=== PATIENT | male | born 1985 | race Caucasian/White ===

== ENCOUNTER 2018-07-14 17:40 | Emergency (ER) | payer OTHER, SELFPAY ==
[2018-07-14] MEDS ORDERED: predniSONE 20 MG TAB ONE (18:04)
[2018-07-14] MEDS ORDERED: ALBUTEROL 2.5 MG/3 ML NEB SOL ONE (18:04)
--- NOTE | 2018-07-14 19:08 | ER ---
Nurse's Notes [facility] Name: Adam Kothari Age: 32 yrs Sex: Male : 1985 Arrival Date: 07/14/2018 Time: 17:42 Bed 28 Private MD: None, None Diagnosis: Unspecified asthma with (acute) exacerbation Presentation: 07/14 17:46 Presenting complaint: Patient states: hx of asthma, decided to smoke a pack of iw cigarettes over the weekend, normally doesn't smoke, has had SOB, chest tightness and wheezing for past couple of days, has been using inhaler and neb treatment at home. Transition of care: patient was not received from another setting of care. Onset of symptoms was July 12, 2018. Risk Assessment: Do you want to hurt yourself or someone else? Patient reports no desire to harm self or others. Initial Sepsis Screen: Does the patient meet any 2 criteria? No. Patient's initial sepsis screen is negative. Does the patient have a suspected source of infection? No. Patient's initial sepsis screen is negative. Care prior to arrival: None. 17:46 Method Of Arrival: Ambulatory iw 17:46 Acuity: SILVER 4 iw Historical: - Allergies: 17:54 NKA; iw - Home Meds: 17:54 Albuterol Nebulizer [Active]; iw - PMHx: 17:54 Asthma; iw - PSHx: 17:54 left wrist; iw - Immunization history:: Adult Immunizations not up to date. - Social history:: Smoking status: Patient/guardian denies using tobacco. - Ebola Screening: : Patient negative for fever greater than or equal to 101.5 degrees Fahrenheit, and additional compatible Ebola Virus Disease symptoms Patient denies exposure to infectious person Patient denies travel to an Ebola-affected area in the 21 days before illness onset No symptoms or risks identified at this time. Screenin:00 Abuse screen: Denies threats or abuse. Denies injuries from another. Nutritional kr2 screening: No deficits noted. Tuberculosis screening: No symptoms or risk factors identified. Fall Risk None identified. Assessment: 18:00 General: Appears in no apparent distress. uncomfortable, well groomed, well developed, kr2 Behavior is calm, cooperative. Pain: Denies pain. Neuro: Level of Consciousness is awake, alert, obeys commands, Oriented to person, place, time, situation, Appropriate for age. Cardiovascular: Patient's skin is warm and dry. Rhythm is regular. Respiratory: Reports cough that is non-productive, Airway is patent Respiratory effort is even, unlabored, Respiratory pattern is regular, symmetrical, Breath sounds are clear bilaterally. GI: Abdomen is flat, non-distended. EENT: Oral mucosa is moist. Derm: Skin is intact, is healthy with good turgor, Skin is pink, warm \T\ dry. 19:00 Reassessment: Patient appears in no apparent distress at this time. Patient and/or kr2 family updated on plan of care and expected duration. Pain level reassessed. Patient is alert, oriented x 3, equal unlabored respirations, skin warm/dry/pink. Patient states feeling better. Patient states symptoms have improved. Vital Signs: 17:43 BP 150 / 104 RA Sitting (auto/reg); Pulse 93; Resp 19; Pulse Ox 97% ; Weight 86.18 kg; iw Height 5 ft. 8 in. (172.72 cm); Pain 0/10; 18:30 BP 146 / 90; Pulse 87; Resp 19; Pulse Ox 97% on R/A; kr2 19:21 BP 146 / 90; Pulse 79; Resp 18; Temp 98.1; Pulse Ox 97% on R/A; kr2 17:43 Body Mass Index 28.89 (86.18 kg, 172.72 cm) iw ED Course: 17:42 Patient arrived in ED. mr 17:42 None, None is Private Physician. mr 17:46 Rosio Wade, RN is Primary Nurse. kr2 17:47 Patient has correct armband on for positive identification. Bed in low position. Call jp3 light in reach. Side rails up X 1. Pulse ox on. NIBP on. 17:48 Domingo Guerin NP is PHCP. pm1 17:48 Sean Dueñas MD is Attending Physician. pm1 17:51 Triage completed. iw 18:00 Patient notified of wait time. kr2 19:25 No provider procedures requiring assistance completed. Patient did not have IV access kr2 during this emergency room visit. Administered Medications: 17:59 Drug: Albuterol 2.5 mg Route: Inhalation; kr2 18:25 Follow up: Response: No adverse reaction; Marked relief of symptoms kr2 17:59 Drug: predniSONE 60 mg Route: PO; kr2 19:25 Follow up: Response: No adverse reaction kr2 Outcome: 19:08 Discharge ordered by . pm1 19:25 Discharged to home ambulatory. kr2 19:25 Condition: good 19:25 Discharge instructions given to patient, Instructed on discharge instructions, follow up and referral plans. medication usage, Demonstrated understanding of instructions, follow-up care, medications. 19:27 Patient left the ED. kr2 Signatures: Addie Garcia mr Nona Birmingham RN RN iw Domingo Guerin NP SENIOR LABEL SPECIALIST pm1 Rosio Wade RN RN kr2 Charlie Flores jp3 Corrections: (The following items were deleted from the chart) 17:52 17:43 BP 150 / 104 Sitting Auto R Arm Regular; Pulse 4bpm; Resp 19bpm; Pulse Ox 97%; jp3iw 19:26 19:21 BP 146 / 90; Pulse 79bpm; Resp 18bpm; Pulse Ox 97% RA; kr2 kr2
--- NOTE | 2018-07-14 19:09 | EDPHYS ---
Physician Documentation [facility] Name: Adam Kothari Age: 32 yrs Sex: Male : 1985 Arrival Date: 07/14/2018 Time: 17:42 Bed 28 Private MD: None, None ED Physician Sean Dueñas HPI: 07/14 18:00 This 32 yrs old Male presents to ER via Ambulatory with complaints of Asthma pm1 Exacerbation. 18:00 The patient presents to the emergency department with wheezing, Current therapy: pm1 albuterol inhaler, albuterol nebs, that began smoking cigarettes, the patient was reported to have non-productive cough, Pre-hospital care: med neb, albuterol. Onset: The symptoms/episode began/occurred yesterday. Modifying factors: The symptoms are alleviated by nothing, the symptoms are aggravated by nothing. Associated signs and symptoms: Pertinent negatives: chest pain, fever, headache, nausea, palpitations, vomiting. Severity of symptoms: in the emergency department the symptoms have improved Pain is currently a 0 / 10. The patient has experienced similar episodes in the past, a few times. The patient has not recently seen a physician. Patient does not smoke but smoked a pack this weekend while partying and believes that it might have caused his asthma to flare up. does not typically have even one asthma attack per month. Historical: - Allergies: 17:54 NKA; iw - Home Meds: 17:54 Albuterol Nebulizer [Active]; iw - PMHx: 17:54 Asthma; iw - PSHx: 17:54 left wrist; iw - Immunization history:: Adult Immunizations not up to date. - Social history:: Smoking status: Patient/guardian denies using tobacco. - Ebola Screening: : Patient negative for fever greater than or equal to 101.5 degrees Fahrenheit, and additional compatible Ebola Virus Disease symptoms Patient denies exposure to infectious person Patient denies travel to an Ebola-affected area in the 21 days before illness onset No symptoms or risks identified at this time. ROS: 18:00 Constitutional: Negative for fever, chills, and weight loss, Eyes: Negative for injury, pm1 pain, redness, and discharge, ENT: Negative for injury, pain, and discharge, Neck: Negative for injury, pain, and swelling, Cardiovascular: Negative for chest pain, palpitations, and edema, Abdomen/GI: Negative for abdominal pain, nausea, vomiting, diarrhea, and constipation, Back: Negative for injury and pain, MS/Extremity: Negative for injury and deformity, Skin: Negative for injury, rash, and discoloration, Neuro: Negative for headache, weakness, numbness, tingling, and seizure. 18:00 Respiratory: Positive for cough, with no reported sputum, shortness of breath, wheezing, Negative for sputum production. Exam: 18:00 Constitutional: This is a well developed, well nourished patient who is awake, alert, pm1 and in no acute distress. Head/Face: Normocephalic, atraumatic. Eyes: Pupils equal round and reactive to light, extra-ocular motions intact. Lids and lashes normal. Conjunctiva and sclera are non-icteric and not injected. Cornea within normal limits. Periorbital areas with no swelling, redness, or edema. ENT: Nares patent. No nasal discharge, no septal abnormalities noted. Tympanic membranes are normal and external auditory canals are clear. Oropharynx with no redness, swelling, or masses, exudates, or evidence of obstruction, uvula midline. Mucous membranes moist. Neck: Trachea midline, no thyromegaly or masses palpated, and no cervical lymphadenopathy. Supple, full range of motion without nuchal rigidity, or vertebral point tenderness. No Meningismus. Chest/axilla: Normal chest wall appearance and motion. Nontender with no deformity. No lesions are appreciated. Cardiovascular: Regular rate and rhythm with a normal S1 and S2. No gallops, murmurs, or rubs. Normal PMI, no JVD. No pulse deficits. 18:00 Abdomen/GI: Soft, non-tender, with normal bowel sounds. No distension or tympany. No guarding or rebound. No evidence of tenderness throughout. Back: No spinal tenderness. No costovertebral tenderness. Full range of motion. Skin: Warm, dry with normal turgor. Normal color with no rashes, no lesions, and no evidence of cellulitis. MS/ Extremity: Pulses equal, no cyanosis. Neurovascular intact. Full, normal range of motion. 18:00 Respiratory: the patient does not display signs of respiratory distress, Respirations: normal, Breath sounds: wheezing: expiratory that is mild, is heard diffusely. 18:00 Neuro: Orientation: is normal, Motor: is normal, moves all fours, Gait: is steady, at a normal pace, without difficulty. Vital Signs: 17:43 BP 150 / 104 RA Sitting (auto/reg); Pulse 93; Resp 19; Pulse Ox 97% ; Weight 86.18 kg; iw Height 5 ft. 8 in. (172.72 cm); Pain 0/10; 18:30 BP 146 / 90; Pulse 87; Resp 19; Pulse Ox 97% on R/A; kr2 19:21 BP 146 / 90; Pulse 79; Resp 18; Temp 98.1; Pulse Ox 97% on R/A; kr2 17:43 Body Mass Index 28.89 (86.18 kg, 172.72 cm) iw MDM: 17:48 Patient medically screened. pm1 19:07 ED course: Offered additional breathing treatment to the patient but refused since he pm1 feels better and has the same medication at home. does need refill on inhaler, but has enough nebulizer at home. . 19:07 Data reviewed: vital signs. Data interpreted: Pulse oximetry: on room air is 97 %. pm1 Interpretation: normal. Counseling: I had a detailed discussion with the patient and/or guardian regarding: the historical points, exam findings, and any diagnostic results supporting the discharge/admit diagnosis, the need for outpatient follow up, to return to the emergency department if symptoms worsen or persist or if there are any questions or concerns that arise at home. Administered Medications: 17:59 Drug: Albuterol 2.5 mg Route: Inhalation; kr2 18:25 Follow up: Response: No adverse reaction; Marked relief of symptoms kr2 17:59 Drug: predniSONE 60 mg Route: PO; kr2 19:25 Follow up: Response: No adverse reaction kr2 Disposition: 07/15 07:46 Co-signature as Attending Physician, Sean Dueñas MD I agree with the assessment and wa plan of care. Disposition: 07/14/18 19:08 Discharged to Home. Impression: Unspecified asthma with (acute) exacerbation. - Condition is Stable. - Discharge Instructions: Asthma, Adult, How to Use an Inhaler. - Prescriptions for Medrol (Rosendo) 4 mg Oral Tablets, Dose Pack - take 1 tablet by ORAL route as directed - follow package instructions; 1 packet. Albuterol Sulfate 90 mcg/actuation - inhale 1-2 puff by INHALATION route every 4-6 hours; 1 Inhaler. - Medication Reconciliation Form, Thank You Letter, Antibiotic Education form. - Follow up: Emergency Department; When: As needed; Reason: Worsening of condition. Follow up: Private Physician; When: 2 - 3 days; Reason: Recheck today's complaints, Continuance of care, Re-evaluation by your physician. - Problem is new. - Symptoms have improved. Signatures: Nona Birmingham RN Domingo Meredith NP [employer]PPLIES PACKER pm1 Sean Dueñas MD MD wa Reaves, Karey, RN RN kr2 Corrections: (The following items were deleted from the chart) 07/14 19:27 19:08 07/14/2018 19:08 Discharged to Home. Impression: Unspecified asthma with (acute) kr2 exacerbation. Condition is Stable. Forms are Medication Reconciliation Form, Thank You Letter, Antibiotic Education, Prescription Opioid Use. Follow up: Emergency Department; When: As needed; Reason: Worsening of condition. Follow up: Private Physician; When: 2 - 3 days; Reason: Recheck today's complaints, Continuance of care, Re-evaluation by your physician. Problem is new. Symptoms have improved. pm1
== END 2018-07-14 19:27 | disposition home or self-care (01) ==
LOC: ER 17:40
DX: J45.901 Unspecified asthma with (acute) exacerbation (principal)
CPT/HCPCS: 99284; J7512

== ENCOUNTER 2020-12-11 20:06 | Emergency (ER) | payer SELFPAY ==
--- OUTSIDE RECORDS SUMMARY | 2020-12-11 20:11 | XMS REPORT | Continuity of Care Document ---
:1985 Author Organization [facility] t Address [address] [place] [address] Care Team Providers Name Role Phone Asked, Pcp Primary Care Physician Unavailable Payers Payer Name Policy Type Policy Number Effective Date Expiration Date S ource Problems This patient has no known problems. Allergies, Adverse Reactions, Alerts This patient has no known allergies or adverse reactions. Family History Family Member Diagnosis Comments Start Date Stop Date Source Natural father No Known Problems Prasad nathanieln Religious Natural mother [facility] Social History Social Habit Start Date Stop Date Quantity Comments Source Tobacco use and 2018-06-16 2018-06-16 Current user [facility] exposure 00:00:00 00:00:00 Alcohol intake 2018-06-16 2018-06-16 Current drinker [place] [facility] 00:00:00 00:00:00 of alcohol (finding) Sex Ass[birth year] [facility] ethodist 00:00:00 00:00:00 Smoking Status Start Date Stop Date Source Light tobacco smoker 2018-06-16 00:00:00 [place] Religious Medications Ordered Filled Start Stop Current Ordering Indication Dosage Frequency Signature Comments Components Source Medication Medication Date Date Medication? Clinician (SIG) Name Name peak flow 2017-09 Yes Severe Check peak [place] meter 0-02 persistent flow in 5 Met hodi device 00:00: asthma, days for st 00 unspecified best lung whether function complicated reading and record, then check once a day for 2 wks, then once a week or if sob. ipratropium 2017-09 Yes Acute 2{spray Q12H 2 sprays [place] (ATROVENT) 0-01 frontal } into each M ethodi 0.03 % 00:00: sinusitis, nostril st nasal spray 00 recurrence every 12 not (twelve) specified hours. Procedures This patient has no known procedures. Plan of Care Planned Activity Planned Date Details Comments Source Future Scheduled 2020-04-15 INFLUENZA VACCINE [place] [facility] Test 00:00:00 [code = INFLUENZA VACCINE] Future Scheduled 2005-12-16 Hepatitis C [place] Met hodist Test 00:00:00 screening (procedure) [code = 451271952] Future Scheduled 2003 COVID-19 VACCINE (1) Prasad christina Religious Test 00:00:00 [code = COVID-19 VACCINE (1)] Results Test Description Test Time Test Comments Results Result [facility] Comments - XR SACRUM/COCCYX 2019-06-23 Patient Name: 2+V 09:11:00 MELODIE NAIR Unit No: [id number] EXAMS: CPT CODE: [id number] XR SACRUM/COCCYX 2+V 45111 LOCATION: T18 EXAM: - XR SACRUM/COCCYX 2+V INDICATION: Lower back and pelvic pain COMPARISON: None. TECHNIQUE: AP, AP oblique and lateral radiographs of the sacrum. FINDINGS: No acute fracture identified. Coccygeal segments are normal in alignment. SI joints are normal. IMPRESSION: No acute bony abnormality. at 0911 Reported and signed by: Lester Guerrero MD CC: Bob MAGAÑA Technologist: RT Mary (R) Transcrpt Date/Tm/Trnsp: 06/23/2019 (09) [email or web address] Orig Print D/T: S: 06/23/2019 (14) [facility] NAME: MELODIE NAIR [address] PHYS: [place] [address] : 1985 AGE: 33 SEX: M LOC: .[facility] PHONE #: [phone] EXAM DATE: 06/23/2019 STATUS: REG ER FAX #: [phone] RADIOLOGY NO: PAGE 1 Signed Report
[2020-12-11] MEDS ORDERED: METHYLPREDNISOLONE 125 MG INJ ONE (21:07)
[2020-12-11] MEDS ORDERED: DIPHENHYDRAMINE 50 MG/ML VIAL ONE (21:07)
[2020-12-11] MEDS ORDERED: NA CHLORIDE 0.9% 1,000 ML ONE (21:07)
[2020-12-11] MEDS ORDERED: FAMOTIDINE 20 MG/2 ML VIAL IV ONE (21:08)
--- NOTE | 2020-12-11 22:40 | ER ---
Nurse's Notes [facility] Name: Adam Kothari Age: 34 yrs Sex: Male : 1985 Arrival Date: 12/11/2020 Time: 20:10 Bed 17 Private MD: Diagnosis: Asthma Presentation: 12/11 20:23 Chief complaint: Patient states: Difficulty breathing and wheezing, off and on 3 days. ca1 today has been worse and all day. Denies cough. Denies fever. HX of asthma. Did breathing treatment and inhalers at home, no relief. Coronavirus screen: Client denies travel out of the [place] in the last 14 days. At this time, the client does not indicate any symptoms associated with coronavirus-19. Ebola Screen: Patient negative for fever greater than or equal to 101.5 degrees Fahrenheit, and additional compatible Ebola Virus Disease symptoms Patient denies exposure to infectious person. Patient denies travel to an Ebola-affected area in the 21 days before illness onset. No symptoms or risks identified at this time. Initial Sepsis Screen: Does the patient meet any 2 criteria? No. Patient's initial sepsis screen is negative. Does the patient have a suspected source of infection? No. Patient's initial sepsis screen is negative. Risk Assessment: Do you want to hurt yourself or someone else? Patient reports no desire to harm self or others. Onset of symptoms was December 11, 2020. 20:23 Method Of Arrival: Ambulatory ca1 20:23 Acuity: SILVER 2 ca1 Historical: - Allergies: 20:26 NKA; ca1 - Home Meds: 20:26 Albuterol Inhl [Active]; ca1 - PMHx: 20:26 Asthma; ca1 - PSHx: 20:26 left wrist; ca1 - Immunization history:: Flu vaccine is not up to date. - Social history:: Smoking status: Reported history of juuling and/or vaping. Screenin:45 Abuse screen: Denies threats or abuse. Nutritional screening: No deficits noted. em Tuberculosis screening: No symptoms or risk factors identified. Fall Risk None identified. Assessment: 20:50 General: Appears in no apparent distress. comfortable, Behavior is calm, cooperative, em appropriate for age, Denies fever. Pain: Denies pain. Neuro: Level of Consciousness is awake, alert, obeys commands, Oriented to person, place, time, situation. Cardiovascular: Capillary refill < 3 seconds Patient's skin is warm and dry. Rhythm is regular. Respiratory: Reports shortness of breath at rest Airway is patent Respiratory effort is even, unlabored, Respiratory pattern is regular, symmetrical, Breath sounds are diminished bilaterally. Denies cough. Derm: Skin is intact, is healthy with good turgor, Skin is pink, warm \T\ dry. Musculoskeletal: Capillary refill < 3 seconds, Range of motion: intact in all extremities. 21:30 Reassessment: pt reports symptoms are unchanged, provider notified. em 22:10 Reassessment: Patient appears in no apparent distress at this time. Patient and/or em family updated on plan of care and expected duration. Pain level reassessed. Patient is alert, oriented x 3, equal unlabored respirations, skin warm/dry/pink. Patient states feeling better. Vital Signs: 20:23 BP 150 / 106; Pulse 104; Resp 20; Temp 98.8(TE); Pulse Ox 96% on R/A; Weight 104.33 kg ca1 (R); Height 5 ft. 8 in. (172.72 cm) (R); Pain 0/10; 22:49 BP 148 / 92; Pulse 100; Resp 18; Pulse Ox 95% on R/A; em 20:23 Body Mass Index 34.97 (104.33 kg, 172.72 cm) ca1 ED Course: 20:10 Patient arrived in ED. ag3 20:26 Triage completed. ca1 20:26 Arm band placed on right wrist. ca1 20:37 Jose Patel RN is Primary Nurse. em 20:37 [facility] Bethea [facility]C [facility] kb 20:37 Carlos Daniel MD is Attending Physician. kb 20:45 Patient has correct armband on for positive identification. Bed in low position. Call em light in reach. Side rails up X2. Pulse ox on. NIBP on. 20:55 Inserted saline lock: 20 gauge in right antecubital area, using aseptic technique. em 22:50 No provider procedures requiring assistance completed. IV discontinued, intact, em bleeding controlled, No redness/swelling at site. Pressure dressing applied. Administered Medications: 20:55 Drug: NS 0.9% 1000 ml Route: IV; Rate: 1000 ml; Site: right antecubital; em 22:51 Follow up: IV Status: Completed infusion; IV Intake: 1000ml em 20:55 Drug: Pepcid (famotidine) 20 mg Route: IVP; Site: right antecubital; em 22:07 Follow up: Response: No adverse reaction em 20:57 Drug: SOLU-Medrol 125 mg Route: IVP; Site: right antecubital; em 22:07 Follow up: Response: No adverse reaction em 20:59 Drug: Benadryl (diphenhydrAMINE) 12.5 mg Route: IVP; Site: right antecubital; em 22:07 Follow up: Response: No adverse reaction em Intake: 22:51 IV: 1000ml; Total: 1000ml. em Outcome: 22:39 Discharge ordered by MD. kb 22:50 Discharged to home ambulatory. em 22:50 Condition: good 22:50 Discharge instructions given to patient, Instructed on discharge instructions, follow up and referral plans. medication usage, Demonstrated understanding of instructions, follow-up care, medications, Prescriptions given X 4. 22:52 Patient left the ED. em Signatures: Radhika Bethea, MACHINE SHOP APPRENTICE-C MACHINE SHOP APPRENTICE-CkJose Maxwell, RN RN em Gema Dorado ag3 Aria Trujillo RN RN ca1 Corrections: (The following items were deleted from the chart) 20: 20:23 Acuity: SILVER 3 ca1 ca1
--- NOTE | 2020-12-11 22:40 | EDPHYS ---
Physician Documentation [facility] Name: Adam Kothari Age: 34 yrs Sex: Male : 1985 Arrival Date: 12/11/2020 Time: 20:10 Bed 17 Private MD: ED Physician Carlos Daniel HPI: 12/12 00:33 This 34 yrs old Male presents to ER via Ambulatory with complaints of kb Breathing Difficulty. 00:33 The patient has shortness of breath at rest, and the patient has a history of asthma. kb Onset: The symptoms/episode began/occurred 4 day(s) ago. Duration: The symptoms are continuous. The patient's shortness of breath is aggravated by nothing, is alleviated by nothing. Associated signs and symptoms: Pertinent positives: This patient does not have any pertinent positive signs or symptoms associated with shortness of breath. Severity of symptoms: At their worst the symptoms were moderate in the emergency department the symptoms are unchanged. The patient has not experienced similar symptoms in the past. The patient has not recently seen a physician. Pt states he has had shortness of breath and wheezing for 4 days. States he also has a rash. This doesn't feel like previous asthma attacks, states he feels like an allergic reaction. . Historical: - Allergies: 12/11 20:26 NKA; ca1 - Home Meds: 20:26 Albuterol Inhl [Active]; ca1 - PMHx: 20:26 Asthma; ca1 - PSHx: 20:26 left wrist; ca1 - Immunization history:: Flu vaccine is not up to date. - Social history:: Smoking status: Reported history of juuling and/or vaping. ROS: 12/12 00:32 Constitutional: Negative for fever, chills, and weight loss, Cardiovascular: Negative kb for chest pain, palpitations, and edema, Abdomen/GI: Negative for abdominal pain, nausea, vomiting, diarrhea, and constipation, MS/Extremity: Negative for injury and deformity, Neuro: Negative for headache, weakness, numbness, tingling, and seizure. Respiratory: Positive for shortness of breath. Skin: Positive for rash, of the right axilla. Exam: 00:32 Constitutional: This is a well developed, well nourished patient who is awake, alert, kb and in no acute distress. Head/Face: Normocephalic, atraumatic. Cardiovascular: Regular rate and rhythm with a normal S1 and S2. No gallops, murmurs, or rubs. No pulse deficits. Respiratory: Respirations even and unlabored. No increased work of breathing, no retractions or nasal flaring. Abdomen/GI: Soft, non-tender. No distention MS/ Extremity: Pulses equal, no cyanosis. Neurovascular intact. Full, normal range of motion. Neuro: Awake and alert, GCS 15, oriented to person, place, time, and situation. Moves all extremities. Normal gait. 00:32 Skin: contact dermatitis, on the right axilla. Vital Signs: 12/11 20:23 BP 150 / 106; Pulse 104; Resp 20; Temp 98.8(TE); Pulse Ox 96% on R/A; Weight 104.33 kg ca1 (R); Height 5 ft. 8 in. (172.72 cm) (R); Pain 0/10; 22:49 BP 148 / 92; Pulse 100; Resp 18; Pulse Ox 95% on R/A; em 20:23 Body Mass Index 34.97 (104.33 kg, 172.72 cm) ca1 MDM: 20:38 Patient medically screened. kb 12/12 00:31 Data reviewed: vital signs, nurses notes. Data interpreted: Pulse oximetry: on room air kb is 95 %. Interpretation: normal. Counseling: I had a detailed discussion with the patient and/or guardian regarding: the historical points, exam findings, and any diagnostic results supporting the discharge/admit diagnosis, the need for outpatient follow up, a family practitioner, to return to the emergency department if symptoms worsen or persist or if there are any questions or concerns that arise at home. 00:31 ED course: Feeling much better after treatment and ready to go home. kb 12/11 20:47 Order name: IV Start; Complete Time: 21:02 kb Administered Medications: 12/11 20:55 Drug: NS 0.9% 1000 ml Route: IV; Rate: 1000 ml; Site: right antecubital; em 22:51 Follow up: IV Status: Completed infusion; IV Intake: 1000ml em 20:55 Drug: Pepcid (famotidine) 20 mg Route: IVP; Site: right antecubital; em 22:07 Follow up: Response: No adverse reaction em 20:57 Drug: SOLU-Medrol 125 mg Route: IVP; Site: right antecubital; em 22:07 Follow up: Response: No adverse reaction em 20:59 Drug: Benadryl (diphenhydrAMINE) 12.5 mg Route: IVP; Site: right antecubital; em 22:07 Follow up: Response: No adverse reaction em Disposition: 12/12 08:12 Co-signature as Attending Physician, Carlos Daniel MD I agree with the assessment and tw4 plan of care. Disposition: 12/11/20 22:39 Discharged to Home. Impression: Asthma. - Condition is Stable. - Discharge Instructions: Asthma, Adult, [id number]. - Prescriptions for Pepcid 20 mg Oral Tablet - take 1 tablet by ORAL route every 12 hours for 5 days; 10 tablet. Prednisone 20 mg Oral Tablet - take 1 tablet by ORAL route once daily for 5 days; 5 tablet. Albuterol Sulfate 2.5 mg /3 mL (0.083 %) Inhalation Solution for Nebulization - inhale 1 unit by NEBULIZATION route every 8 hours As needed; 1 box. Albuterol Sulfate 90 mcg/actuation - inhale 1-2 puff by INHALATION route every 4-6 hours; 1 Inhaler. - Medication Reconciliation Form, Thank You Letter, Antibiotic Education, Prescription Opioid Use form. - Follow up: Emergency Department; When: As needed; Reason: Worsening of condition. Follow up: Private Physician; When: 2 - 3 days; Reason: Recheck today's complaints, Continuance of care, Re-evaluation by your physician. Signatures: Radhika Bethea, GERALDINE-Lakshmi CHANDLER-Jose Rojo, KRISTEL RN em Carlos Daniel MD MD tw4 Aria Trujillo RN RN ca1 Corrections: (The following items were deleted from the chart) 12/11 22:52 22:39 12/11/2020 22:39 Discharged to Home. Impression: Asthma. Condition is Stable. em Forms are Medication Reconciliation Form, Thank You Letter, Antibiotic Education, Prescription Opioid Use. Follow up: Emergency Department; When: As needed; Reason: Worsening of condition. Follow up: Private Physician; When: 2 - 3 days; Reason: Recheck today's complaints, Continuance of care, Re-evaluation by your physician. kb
[2020-12-11 23:45] VITALS: TEMP 98.8
[2020-12-11 23:46] VITALS: BP 148/92; O2SAT 95
== END 2020-12-11 22:52 | disposition home or self-care (01) ==
LOC: ER 20:06
DX: J45.909 Unspecified asthma, uncomplicated (principal); R21 Rash and other nonspecific skin eruption
CPT/HCPCS: 96361; 96374; 96375; 99284; J1200; J2930; J7030

== ENCOUNTER 2022-02-09 06:26 | Emergency (ER) | payer BC, SELFPAY ==
--- OUTSIDE RECORDS SUMMARY | 2022-02-09 06:29 | XMS REPORT | Continuity of Care Document ---
:1985 Author Organization [facility] t Address [address] [place] [address] Care Team Providers Name Role Phone Jenna Attending Clinician Unavailable Jenna Admitting Clinician Unavailable Payers Payer Name Policy Type Policy Number Effective Date Expiration Date S [facility]/ [place] [id number] Problems This patient has no known problems. Allergies, Adverse Reactions, Alerts This patient has no known allergies or adverse reactions. Social History Smoking Status Start Date Stop Date Source Former Smoker [facility] Medications Ordered Filled Start Stop Current Ordering Indication Dosage Frequency Signature Comments Components Source Medication Medication Date Date Medication? Clinician (SIG) Name Name albuterol albuterol No 2puff(s Q4H albuterol [place] sulf 90 sulf 90 ) sulf 90 da mcg/actuati mcg/actuati mcg/actuat Medical on breath on breath ion breath Group activated activated activated powder powder powder inhaler,sen inhaler,sen inhaler,se sor Inhale sor Inhale nsor 2 puffs 2 puffs Inhale 2 every 4 every 4 puffs hours by hours by every 4 inhalation inhalation hours by route. route. inhalation route. Vital Signs Vital Name Observation Time Observation Value Comments Source BP Systolic 2021-04-30 00:00:00 150 mm[Hg] [facility] Body Weight 2021-04-30 00:00:00 3968 [oz_av] [facility] BP Diastolic 2021-04-30 00:00:00 88 mm[Hg] [facility] Height 2021-04-30 00:00:00 68 [in_i] [facility] BMI (Body Mass 2021-04-30 00:00:00 37.7 kg/m2 [facility] Procedures Procedure Date / Time Performed Performing Clinician Darrion miah Wrist Arthroscopy [facility] Encounters Start End Encounter Admission Attending Care Care Encounter Source Date/Time Date/Time Type Type Clinicians Facility Department ID 2021-09-17 2021-09-17 Outpatient VFP VFP [id number] [facility] 04:40:00 04:40:00 [id number] [facility] 2021-05-01 2021-05-01 Outpatient K[facility]A [facility] MMG [id number] [facility] 09:42:00 09:42:00 [facility] 2021-04-30 2021-04-30 Outpatient [facility]A [facility] MMG [id number] [facility] 11:09:00 11:09:00 [facility] 2021-04-30 2021-04-30 [facility] [place] - [id number] [facility] 00:00:00 00:00:00 [facility] Akira da PA-C: [facility] [address], [place] [address] , Ph. 2021-04-27 2021-04-27 Outpatient K[facility]ela_A MMG MMG [id number] -2020 [facility] 02:52:00 02:52:00 [id number] Results Test Description Test Time Test Comments Results Result [facility] miah Comments - XR SACRUM/COCCYX 2019-06-23 Patient Name: 2+V 09:11:00 MELODIE NAIR Unit No: [id number] EXAMS: CPT CODE: [id number] XR SACRUM/COCCYX 2+V 35006 LOCATION: T18 EXAM: - XR SACRUM/COCCYX 2+V INDICATION: Lower back and pelvic pain COMPARISON: None. TECHNIQUE: AP, AP oblique and lateral radiographs of the sacrum. FINDINGS: No acute fracture identified. Coccygeal segments are normal in alignment. SI joints are normal. IMPRESSION: No acute bony abnormality. at 0911 Reported and signed by: Lester Guerrero MD CC: Bob MAGAÑA Technologist: Sanna Jaramillo RT (R) Transcrpt Date/Tm/Trnsp: 06/23/2019 (910) [email or web address] Orig Print D/T: S: 06/23/2019 (913) [facility] NAME: MELODIE NAIR [id number] [address] PHYS: [email or web address] [place] [address] : 1985 AGE: 33 SEX: M LOC: [facility] PHONE #: [phone] EXAM DATE: 06/23/2019 STATUS: REG ER FAX #: [phone] RADIOLOGY NO: PAGE 1 Signed Report
--- NOTE | 2022-02-09 11:40 | ER ---
Nurse's Notes [facility] Name: Adam Kothari Age: 36 yrs Sex: Male : 1985 Arrival Date: 02/09/2022 Time: 06:30 Bed Waiting Private MD: Diagnosis: Presentation: 02/09 06:45 Chief complaint: Patient states: he has been having a headache since last Nathen has bb been seen at several EDs and started on Sumitriptan but it is not working. Coronavirus screen: At this time, the client does not indicate any symptoms associated with coronavirus-19. Ebola Screen: No symptoms or risks identified at this time. Initial Sepsis Screen: Does the patient meet any 2 criteria? No. Patient's initial sepsis screen is negative. Does the patient have a suspected source of infection? No. Patient's initial sepsis screen is negative. Risk Assessment: Do you want to hurt yourself or someone else? Patient reports no desire to harm self or others. Onset of symptoms was February 01, 2022. 06:45 Method Of Arrival: Ambulatory bb 06:45 Acuity: SILVER 3 bb Triage Assessment: 06:47 Headache History: The patient has had previous headaches. General: Appears in no bb apparent distress. uncomfortable, Behavior is calm, cooperative. Pain: Complains of pain in head Pain currently is 10 out of 10 on a pain scale. Pain began February 01, 2022 Also complains of no other associated symptoms. Neuro: Level of Consciousness is awake, alert, obeys commands, Oriented to person, place, time, situation. Cardiovascular: Capillary refill < 3 seconds Patient's skin is warm and dry. Respiratory: Airway is patent Respiratory effort is even, unlabored. GI: No signs and/or symptoms were reported involving the gastrointestinal system. Derm: Skin is pink, warm \T\ dry. Musculoskeletal: Circulation, motion, and sensation intact. Historical: - Allergies: 06:47 NKA; bb - Home Meds: 06:47 Albuterol Inhl [Active]; Symbicort inhalation [Active]; sumatriptan oral [Active]; bb - PMHx: 06:47 Asthma; bb - PSHx: 06:47 left wrist; bb - Immunization history:: Client reports having NOT received the Covid vaccine. - Social history:: Smoking status: Patient denies any tobacco usage or history of. Vital Signs: 06:45 BP 112 / 88; Pulse 118; Resp 16 S; Temp 99.3(O); Pulse Ox 96% on R/A; Weight 106.59 kg bb (R); Height 5 ft. 8 in. (172.72 cm) (R); Pain 10/10; 06:45 Body Mass Index 35.73 (106.59 kg, 172.72 cm) ED Course: 06:30 Patient arrived in ED. bp1 06:47 Triage completed. bb 06:47 Arm band placed on Patient placed in waiting room, Patient notified of wait time. bb Family accompanied patient. 07:45 Patient's name was called from ER lobby. No response. Unable to locate patient. Will jl7 disposition as left without being seen by a provider. 08:00 Patient's name was called from ER lobby. No response. Unable to locate patient. Will jl7 disposition as left without being seen by a provider. 08:05 [facility] Henriquez [facility] cp 08:05 Anil Shaw MD is Attending Physician. cp 08:15 Patient's name was called from ER lobby. No response. Unable to locate patient. Will jl7 disposition as left without being seen by a provider. Administered Medications: No medications were administered Outcome: 11:39 Patient left the ED. jl7 Signatures: Maria Antonia Montemayor, RN RN Romeo Loving PA PA cp Leal, Jahala, RN RN jl7 Ruby Olivo [facility]
[2022-02-09 11:48] VITALS: BP 112/88; TEMP 99.3; O2SAT 96
== END 2022-02-09 11:39 | disposition left against medical advice (07) ==
LOC: ER 06:26
DX: Z53.21 Procedure and treatment not carried out due to patient leaving prior to being seen by health care provider (principal)
CPT/HCPCS: 99281